=== PATIENT | female | born 1980 | race Caucasian/White ===

== ENCOUNTER 2020-11-03 14:46 | Emergency (ER) | payer MEDICARE ==
--- NOTE | 2020-11-03 15:20 | ED Physician Documentation ---
History of Present Illness - Stated complaint Stated Complaint: NECK JAW TOOTH & SINUS PX - Chief complaint Chief Complaint: Heent - Additonal information Additional information: 40-year-old female presents the emergency department for evaluation of 4 days left-sided neck pain. She is concerned that she may have an underlying ental or neck infection. She reports that in December 2019 she contracted COVID-19. 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 However her doctors have started her on methotrexate orally. This began 4 weeks ago and each week she takes an increased dose. She is scheduled to take her dose this week but her bulk tank driver requested she be seen in the emergency department for concerns of the neck pain. She denies any fevers. Does report some pain in the left upper jaw but denies chest pain or shortness of breath. Denies cough, weight loss PMH: negative SOC: no tobacco Review of Systems Constitutional: denies: Fever, Chills Eyes: reports: Reviewed and negative Ears: reports: Reviewed and negative Nose: reports: Congestion, Sinus pressure / pain Throat: reports: Dental pain / toothache, Other (left jaw pain). denies: Oral lesions / sores, Sore throat Cardiac: denies: Chest pain / pressure, Palpitations Respiratory: denies: Dyspnea, Cough GI: denies: Abdominal Pain, Abdominal Swelling, Nausea : denies: Dysuria, Frequency, Hesitancy Skin: denies: Rash, Lesions Musculoskeletal: reports: Neck pain. denies: Back pain, Extremity pain Neurologic: denies: Generalized weakness, Focal weakness, Difficulty speaking, Near syncope, Syncope, Confused, Headache, LOC PD PAST MEDICAL HISTORY - Present Medications Home Medications: Ambulatory Orders Medication Instructions Recorded Confirmed Dextroamphetamine/Amphetamine 1 tab DAILY 11/03/20 11/03/20 [Adderall 7.5 mg Tablet] Methotrexate [Methotrexate Sodium] 7 tab 11/03/20 - Allergies Allergies/Adverse Reactions: Allergies Allergy/AdvReac Type Severity Reaction Status Date / Time amoxicillin [From Augmentin] Allergy Unknown Verified 11/03/20 15:26 cephalexin [From Keflex] Allergy Unknown Verified 11/03/20 15:26 clavulanic acid Allergy Unknown Verified 11/03/20 15:26 [From Augmentin] codeine Allergy Unknown Verified 11/03/20 15:26 duloxetine Allergy Unknown Verified 02/25/21 15:26 levofloxacin [From Levaquin] Allergy Unknown Verified 11/03/20 15:26 norgestimate Allergy Unknown Verified 11/03/20 15:26 prazosin Allergy Unknown Verified 11/03/20 15:26 Sulfa (Sulfonamide Allergy Unknown Verified 11/03/20 15:26 Antibiotics) dethogestrel Allergy Unknown Uncoded 11/03/20 15:26 PD ED PE EXPANDED - General General: Alert, No acute distress, Well developed/nourished - HEENT HEENT: PERRL, EOMI, Moist mucous membranes, Pharynx normal, Dentition normal (No tenderness elicited with palpation of the upper or lower teeth. No gumline swelling, no trismus.). No: Pharyngeal erythema, Swollen tonsils, Tonsillar exudate, Dental abscess, Dry socket, Oral lesions / sores, Lip laceration - Eyes Eyes: PERRL - Neck Neck: Supple w/out meningeal sx, No tenderness. No: Adenopathy - Cardiac Cardiac: Regular Rhythm, Radial strong equal, Pedal strong equal, Cap refill < 2 sec - Respiratory Respiratory: Clear to ausultation marcella. No: Distress, Labored - Abdomen Abdomen: Normal Bowel sounds. No: Tender to palpation - Extremities Extremities: Normal. No: Deformity, Tenderness Results - Vitals Vitals: Vital Signs - 24 hr 11/03/20 11/03/20 14:52 15:21 Temperature 36.9 C 36.7 C Heart Rate 66 56 L Respiratory 18 14 Rate Blood Pressure 146/66 H 140/81 H O2 Saturation 98 100 Oxygen O2 Source Room air - EKG (time done) 1523 Rate: Rate (enter#) (54) Rhythm: NSR Palmer: Normal Intervals: Normal UT QRS: Normal Ischemia: Normal ST segments Compare to prior EKG: Old EKG unavailable Computer interpretation: Agree with computer - Labs Labs: Laboratory Tests 11/03/20 11/03/20 11/03/20 15:24 15:24 15:24 WBC 7.0 RBC 4.64 Hgb 13.4 Hct 41.8 MCV 90.1 MCH 28.9 MCHC 32.1 RDW 13.2 Plt Count 277 MPV 9.5 Neut # (Auto) 4.1 Lymph # (Auto) 2.4 [place] # (Auto) 0.4 Eos # (Auto) 0.1 Baso # (Auto) 0.0 Absolute Nucleated RBC 0.00 Nucleated RBC % 0.0 Sodium 135 Potassium 3.8 Chloride 101 Carbon Dioxide 25 Anion Gap 9.0 BUN 11 Creatinine 0.7 Estimated GFR (MDRD) 92 Glucose 89 Calcium 9.2 Total Bilirubin 0.8 AST 20 ALT 27 Alkaline Phosphatase 65 Troponin I High Sens Total Protein 7.5 Albumin 4.6 Globulin 2.9 Albumin/Globulin Ratio 1.6 Lipase 33 HCG, Quant < 0.60 11/03/20 15:24 WBC RBC Hgb Hct MCV MCH MCHC RDW Plt Count MPV Neut # (Auto) Lymph # (Auto) [place] # (Auto) Eos # (Auto) Baso # (Auto) Absolute Nucleated RBC Nucleated RBC % Sodium Potassium Chloride Carbon Dioxide Anion Gap BUN Creatinine Estimated GFR (MDRD) Glucose Calcium Total Bilirubin AST ALT Alkaline Phosphatase Troponin I High Sens < 2.3 L Total Protein Albumin Globulin Albumin/Globulin Ratio Lipase HCG, Quant - Rads (name of study) CT soft tissue neck Radiology: Final report received (No acute inflammatory findings.) PD MEDICAL DECISION MAKING - ED course Complexity details: reviewed results, re-evaluated patient, d/w patient ED course: 40-year-old female presents emergency department for evaluation of acute left neck pain. She is concerned that she may have an underlying infection as she recently started methotrexate treatment for an unclear autoimmune disorder that began after she had Covid 19 in December of last year. On clinical exam there were no adventitious fine certainly no lymphadenopathy her teeth are in good repair there was no trismus posterior oropharynx erythema. She had full range of motion of the neck. Screening labs are also unremarkable. Patient is hesitate to take her methotrexate without confirming that she did not have a deeper space neck infection therefore we did do a CT soft tissue the neck without any acute inflammatory findings specifically the teeth appear in good repair. There are no salivary gland stones. Thyroid was also unremarkable and there was no lymphadenopathy. Findings were discussed with the patient. She has had some r elief using a warm compress I recommend she continue that as well as Tylenol. Follow-up with her bulk tank driver. Departure - Departure Disposition: Home, Self Care Clinical Impression: Neck pain on left side, Nasal congestion, Autoimmune disorder Condition: Stable Record reviewed to determine appropriate education?: Yes Follow-Up: Provider,Other [Primary Care Provider] - Comments: You were seen in the emergency department today for sinus congestion and left- sided neck pain. Your screening labs are unremarkable and essentially normal. Your physical exam was also essentially normal. We did do a CT of your neck that did not show any worrisome findings. The cause of your pain is not clear though I feel very comfortable saying that this is not an infection within the neck. I think it is safe to continue taking the methotrexate. I recommend that you continue the Kathy pot for your nasal congestion. Discuss this ED visit with your primary doctor as well as your bulk tank driver. If you develop fevers, have severe facial pain, have milky drainage from your nose or facial swelling please return immediately to the emergency department.
[2020-11-03 15:28] LABS: BASOPHILS % (AUTO) 0.6 %; EOSINOPHILS # (AUTO) 0.1 10^3/uL (0.0-0.7); EOSINOPHILS % (AUTO) 0.9 %; HCT - HEMATOCRIT 41.8 % (37.0-47.0); HGB - HEMOGLOBIN 13.4 g/dL (12.0-16.0); LYMPHOCYTES # (AUTO) 2.4 10^3/uL (1.5-3.5); LYMPHOCYTES % (AUTO) 33.9 %; MEAN CORPUSCULAR HEMOGLOBIN 28.9 pg (27.0-31.0); MEAN CORPUSCULAR HGB CONC 32.1 g/dL (32.0-36.0); MEAN CORPUSCULAR VOLUME 90.1 fL (81.0-99.0); MEAN PLATELET VOLUME 9.5 fL (7.9-10.8); MONOCYTES # (AUTO) 0.4 10^3/uL (0.0-1.0); MONOCYTES % (AUTO) 5.4 %; NEUTROPHILS # (AUTO) 4.1 10^3/uL (1.5-6.6); NEUTROPHILS % (AUTO) 58.9 %; PLT - PLATELET COUNT 277 10^3/uL (130-450); RED BLOOD COUNT 4.64 10^6/uL (4.20-5.40); RED CELL DISTRIBUTION WIDTH 13.2 % (12.0-15.0)
[2020-11-03] MEDS ORDERED: IOVERSOL 320 100 ML VIAL IVP ONE ×2 (15:28→16:30)
[2020-11-03 15:45] LABS: ALBUMIN 4.6 g/dL (3.2-5.5); ALBUMIN/GLOBULIN RATIO 1.6 (1.0-2.2); BILIRUBIN,TOTAL 0.8 mg/dL (0.2-1.0); CALCIUM 9.2 mg/dL (8.5-10.3); CREATININE 0.7 mg/dL (0.4-1.0); POTASSIUM 3.8 mmol/L (3.5-5.0); TOTAL PROTEIN 7.5 g/dL (6.7-8.2)
[2020-11-03 17:26] VITALS: BP 132/85
--- NOTE | 2020-11-03 17:59 | CT Report ---
PROCEDURE: SOFT TISSUE NECK W INDICATIONS: left neck/dental pain; ? infection. on oral chemo CONTRAST: Nonionic IV TECHNIQUE: After the administration of intravenous contrast, 3.0 mm axial sections acquired from the sella to th e aortic arch. Additional oblique axial 3.0 mm sections acquired through the pharynx. 3 mm thick co rosangela reformats were generated. For radiation dose reduction, the following was used: automated exp osure control, adjustment of mA and/or kV according to patient size. COMPARISON: None. FINDINGS: Image quality: Excellent. Lymph nodes: No enlarged lymph nodes seen throughout the neck. Vessels: Visualized vasculature appears patent. Neck spaces: Scrutiny is given to the areas of clinical concern, as marked by the patient BB markers on the left. At these sites, no significant inflammatory changes or masses can be seen. The oropharynx, nasopharynx, and pharynx demonstrate no mucosal lesions. The vocal cords, false voca l cords, pyriform sinuses, epiglottis, vallecula, and tongue base all appear normal. Glands: The parotid and submandibular glands appear normal. The thyroid is normal in size. Miscellaneous: Visualized brain and orbits appear normal. Lung apices appear clear. Superficial so ft tissues appear normal. Bones: No suspicious bony lesions. Visualized sinuses and mastoids appear unremarkable. No signifi cant dental abnormality can be seen. IMPRESSION: No significant abnormalities can be seen at the areas of clinical concern. No abscess can be seen. Note: No significant discrepancy from the preliminary report. Reviewed by: Jamie Alfaro MD on 11/03/2020 4:58 PM [place] Approved by: Jamie Alfaro MD on 11/03/2020 4:58 PM [place] Station ID: [id number]
== END 2020-11-03 17:15 | disposition home or self-care (01) ==
LOC: ED 14:46
DX: M54.2 Cervicalgia (principal); D89.89 Other specified disorders involving the immune mechanism, not elsewhere classified; R09.81 Nasal congestion
CPT/HCPCS: 36415; 70491; 80053; 83690; 84484; 84702; 85025; 93005; 99284; Q9967

== ENCOUNTER 2020-11-08 10:01 | Outpatient (CLI) | payer MEDICARE ==
[2020-11-08 15:02] LABS: BASOPHILS % (AUTO) 0.4 %; EOSINOPHILS # (AUTO) 0.1 10^3/uL (0.0-0.7); EOSINOPHILS % (AUTO) 1.6 %; HCT - HEMATOCRIT 42.3 % (37.0-47.0); HGB - HEMOGLOBIN 13.2 g/dL (12.0-16.0); LYMPHOCYTES # (AUTO) 2.4 10^3/uL (1.5-3.5); MEAN CORPUSCULAR HEMOGLOBIN 28.5 pg (27.0-31.0); MEAN CORPUSCULAR HGB CONC 31.2 g/dL (32.0-36.0); MEAN CORPUSCULAR VOLUME 91.4 fL (81.0-99.0); MEAN PLATELET VOLUME 10.2 fL (7.9-10.8); MONOCYTES # (AUTO) 0.4 10^3/uL (0.0-1.0); MONOCYTES % (AUTO) 4.9 %; NEUTROPHILS # (AUTO) 4.6 10^3/uL (1.5-6.6); NEUTROPHILS % (AUTO) 60.8 %; PLT - PLATELET COUNT 278 10^3/uL (130-450); RED BLOOD COUNT 4.63 10^6/uL (4.20-5.40); RED CELL DISTRIBUTION WIDTH 13.4 % (12.0-15.0); WHITE BLOOD COUNT 7.5 x10^3/uL (4.8-10.8)
== END 2020-11-08 10:02 | disposition home or self-care (01) ==
LOC: LAB.S 10:01
PROVIDERS: ATTEND Internal Medicine
DX: Z51.81 Encounter for therapeutic drug level monitoring (principal); Z79.899 Other long term (current) drug therapy
CPT/HCPCS: 36415; 85025

== ENCOUNTER 2020-11-09 17:50 | Outpatient (CLI) | payer MEDICARE ==
[2020-11-09 20:31] LABS: BASOPHILS % (AUTO) 0.5 %; EOSINOPHILS # (AUTO) 0.1 10^3/uL (0.0-0.7); EOSINOPHILS % (AUTO) 1.1 %; HCT - HEMATOCRIT 40.6 % (37.0-47.0); LYMPHOCYTES # (AUTO) 2.2 10^3/uL (1.5-3.5); LYMPHOCYTES % (AUTO) 28.8 %; MEAN CORPUSCULAR VOLUME 90.6 fL (81.0-99.0); MEAN PLATELET VOLUME 10.3 fL (7.9-10.8); MONOCYTES # (AUTO) 0.4 10^3/uL (0.0-1.0); MONOCYTES % (AUTO) 4.6 %; NEUTROPHILS # (AUTO) 4.9 10^3/uL (1.5-6.6); NEUTROPHILS % (AUTO) 64.9 %; PLT - PLATELET COUNT 287 10^3/uL (130-450); RED BLOOD COUNT 4.48 10^6/uL (4.20-5.40); RED CELL DISTRIBUTION WIDTH 13.4 % (12.0-15.0); WHITE BLOOD COUNT 7.6 x10^3/uL (4.8-10.8)
[2020-11-09 20:48] LABS: CREATININE 0.7 mg/dL (0.4-1.0); CRP - C-REACTIVE PROTEIN 1.2 mg/dL (0-1.0)
== END 2020-11-09 17:51 | disposition home or self-care (01) ==
LOC: LAB.S 17:50
PROVIDERS: ATTEND Internal Medicine
DX: Z51.81 Encounter for therapeutic drug level monitoring (principal); Z79.899 Other long term (current) drug therapy
CPT/HCPCS: 36415; 82565; 84450; 84460; 85025; 85651; 86140

== ENCOUNTER 2020-11-15 17:26 | Outpatient (CLI) | payer MEDICARE ==
--- NOTE | 2020-11-15 18:09 | XRAY Report ---
PROCEDURE: Chest 2 View X-Ray INDICATIONS: COUGH TECHNIQUE: 2 view(s) of the chest. COMPARISON: None. FINDINGS: Surgical changes and devices: None. Lungs and pleura: No pleural effusions or pneumothorax. Lungs are clear. Mediastinum: Mediastinal contours are normal. Heart size is normal. Bones and chest wall: No suspicious bony abnormalities. Soft tissues appear unremarkable. IMPRESSION: Normal for age, source of current symptoms is not seen. Reviewed by: Tye Madrid MD on 11/15/2020 5:08 PM [facility] Approved by: Tye Madrid MD on 11/15/2020 5:08 PM [facility] Station ID: [id number]
== END 2020-11-15 17:27 | disposition home or self-care (01) ==
LOC: DI.S 17:26
PROVIDERS: ATTEND Internal Medicine
DX: R05 Cough (principal)

== ENCOUNTER 2020-12-06 09:33 | Outpatient (CLI) | payer MEDICARE | END 2020-12-06 09:34 | disposition home or self-care (01) | LOC: RT 09:33 | PROVIDERS: ATTEND Internal Medicine | DX: J45.909 Unspecified asthma, uncomplicated (principal) | CPT/HCPCS: 94060; 94729 ==

== ENCOUNTER 2021-02-01 12:50 | Outpatient (CLI) | payer MEDICARE ==
[2021-02-01 20:09] LABS: INFECTIOUS MONONUCLEOSIS NEGATIVE (Negative)
== END 2021-02-01 12:51 | disposition home or self-care (01) ==
LOC: LAB.S 12:50
PROVIDERS: ATTEND Internal Medicine
DX: Z01.84 Encounter for antibody response examination (principal); B34.9 Viral infection, unspecified
CPT/HCPCS: 36415; 86308; 86769

== ENCOUNTER 2021-08-23 16:19 | Outpatient (CLI) | payer MEDICARE | END 2021-08-23 16:20 | disposition home or self-care (01) | LOC: LAB.S 16:19 | PROVIDERS: ATTEND Internal Medicine | DX: Z01.84 Encounter for antibody response examination (principal); B97.89 Other viral agents as the cause of diseases classified elsewhere | CPT/HCPCS: 86769 ==

== ENCOUNTER 2022-01-09 08:00 | Outpatient (CLI) | payer MEDICARE ==
--- NOTE | 2022-01-09 12:14 | XRAY Report ---
PROCEDURE: Chest 2 View X-Ray INDICATIONS: PRODUCTIVE COUGH TECHNIQUE: 2 view(s) of the chest. COMPARISON: November 15, 2020 FINDINGS: SUPPORT DEVICES: None. LUNGS/PLEURA: No focal consolidation, pleural effusion or space-occupying pneumothorax. MEDIASTINUM: The cardiomediastinal silhouette is within normal limits. BONES/SOFT TISSUES: No acute abnormality. IMPRESSION: 1.No acute cardiopulmonary abnormality. Reviewed by: Lefty Merida MD on 01/09/2022 12:12 PM PDT Approved by: Lefty Merida MD on 01/09/2022 12:12 PM PDT Station ID: [id number]
== END 2022-01-09 23:59 | disposition home or self-care (01) ==
LOC: DI.S 08:00
PROVIDERS: ATTEND Physician Assistant Medical
DX: R05.8 Other specified cough (principal); R05.9 Cough, unspecified; J34.89 Other specified disorders of nose and nasal sinuses; Z20.822 Contact with and (suspected) exposure to COVID-19
CPT/HCPCS: 71046; U0004

== ENCOUNTER 2022-01-09 08:00 | Outpatient (CLI) | payer MEDICARE | END 2022-01-10 18:12 | disposition home or self-care (01) | LOC: LAB.S 08:00 | PROVIDERS: ATTEND Physician Assistant Medical | DX: J34.89 Other specified disorders of nose and nasal sinuses (principal); Z20.822 Contact with and (suspected) exposure to COVID-19 ==

== ENCOUNTER 2022-02-28 12:32 | Outpatient (CLI) | payer MEDICARE ==
[2022-02-28 23:22] LABS: CHLAMYDIA TRACHOMATIS DNA NEGATIVE (NEGATIVE); NEISSERIA GONORRHOEAE DNA NEGATIVE (NEGATIVE); TRICHOMONAS VAGINALIS DNA NEGATIVE (NEGATIVE)
[2022-03-01 06:10] LABS: RPR Non Reactive (Non Reactive)
[2022-03-01 07:10] LABS: HBsAG SCREEN Negative (Negative); HCV AB <0.1 s/co ratio (0.0-0.9); HEPATITIS B CORE IGM AB Negative (Negative); HIV SCREEN 4TH GENERATION Non Reactive (Non Reactive)
[2022-03-01 08:10] LABS: HSV 1 IGG TYPE SPEC <0.91 index (0.00-0.90); HSV 2 IGG TYPE SPEC <0.91 index (0.00-0.90)
[2022-03-01 15:08] LABS: TREPONEMA PALLIDUM ANTIBODIES Non Reactive (Non Reactive)
== END 2022-02-28 12:33 | disposition home or self-care (01) ==
LOC: LAB.S 12:32
PROVIDERS: ATTEND Internal Medicine
DX: Z11.3 Encounter for screening for infections with a predominantly sexual mode of transmission (principal)
CPT/HCPCS: 36415; 86592; 86695; 86696; 86705; 86709; 86780; 86803; 87340; 87491; 87591; 87661; G0475; 87389; 87529

== ENCOUNTER 2023-01-06 10:03 | Emergency (ER) | payer MEDICARE ==
[2023-01-06] MEDS ORDERED: predniSONE 20 MG TABLET PO STA (10:28)
--- NOTE | 2023-01-06 10:35 | ED Physician Documentation ---
PD HPI SKIN - Stated complaint Stated Complaint: RASH ON FACE - Chief complaint Chief Complaint: Wound - History obtained from History obtained from: Patient - Additional information Additional information: Patient is a 42-year-old female presenting for evaluation of a rash that developed on her face yesterday and has spread to her chest and back. She describes the rash as feeling itchy. There are pustules to the forehead region.She tried Benadryl and triamcinolone Yesterday. She says that the swelling she was experiencing yesterday to her face does seem better. She denies any new known exposures.She does report having newly developed allergies to various foods since having COVID last year. She has had outbreaks of various rashes and has seen a policy adviser at the [facility]. She did send a message through the portal system today but did not receive an answer back.She denies any new known foods, detergents, face lotions or soaps.She denies any chest pain or shortness of breath. She denies any fevers. 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: Ovarian cysts : Other Musculoskeletal: Osteoarthritis, Fibromyalgia, Other - Past Surgical History Past Surgical History: Yes General: Appendectomy, Colonoscopy, EGD - Present Medications Home Medications: Ambulatory Orders Medication Instructions Recorded Confirmed Dextroamphetamine/Amphetamine 1 tab DAILY 11/03/20 11/03/20 [Adderall 7.5 mg Tablet] Methotrexate [Methotrexate Sodium] 7 tab 11/03/20 Mupirocin 1 applic TP TID 7 Days #22 gm 01/06/23 predniSONE [Deltasone] 60 mg PO DAILY 4 Days #12 tablet 01/06/23 - Allergies Allergies/Adverse Reactions: Allergies Allergy/AdvReac Type Severity Reaction Status Date / Time amoxicillin [From Augmentin] Allergy Unknown Verified 01/06/23 10:14 cephalexin [From Keflex] Allergy Unknown Verified 01/06/23 10:14 clavulanic acid Allergy Unknown Verified 01/06/23 10:14 [From Augmentin] codeine Allergy Unknown Verified 01/06/23 10:14 duloxetine Allergy Unknown Verified 01/06/23 10:14 levofloxacin [From Levaquin] Allergy Unknown Verified 01/06/23 10:14 norgestimate Allergy Unknown Verified 01/06/23 10:14 prazosin Allergy Unknown Verified 01/06/23 10:14 Sulfa (Sulfonamide Allergy Unknown Verified 01/06/23 10:14 Antibiotics) dethogestrel Allergy Unknown Uncoded 01/06/23 10:14 - Social History Does the pt smoke?: No Smoking Status: Never smoker PD ED PE NORMAL - General General: Alert and oriented X 3, No acute distress, Well developed/nourished - HEENT HEENT: Atraumatic, Moist mucous membranes, Pharynx benign - Neck Neck: Supple, no meningeal sign - Cardiac Cardiac: RRR, No murmur - Respiratory Respiratory: No respiratory distress, Clear bilaterally - Abdomen Abdomen: Soft, Non tender - Derm Derm: Other (Pustular rash to forehead, Papular erythema to lower face, no oral involvement; blanching erythema to chest and back) - Neuro Neuro: Normal speech Results - Vitals Vitals: Vital Signs - 24 hr 01/06/23 01/06/23 10:08 10:40 Temperature 36.9 C Heart Rate 71 65 Respiratory 17 18 Rate Blood Pressure 135/91 H 131/75 H O2 Saturation 97 100 Oxygen O2 Source Room air PD Medical Decision Making - ED course ED course: Patient presenting for evaluation of rash to her face and upper torso. Her vital signs are stable. She has no involvement of mucosal membranes. She is otherwise well-appearing. She has had prior rashes with unclear etiologies and does report having a developed allergies since having COVID last year. Due to widespread involvement I believe oral steroids would be indicated as it is itchy and appears to be somewhat allergic in nature.There is a pustular rash to the forehead. Discussed treatment with antibiotic ointment which she is agreeable to. Does not want oral antibiotics at this time. Does not appear to be cellulitis. She has a policy adviser through the [facility]. She has already reached out to them through their patient messaging system and was advised to have close follow-up. She is comfortable with our treatment plan is advised on concerning symptoms to return for. Departure - Departure Disposition: 01 Home, Self Care Clinical Impression: Rash and nonspecific skin eruption Condition: Stable Instructions: ED Dermatitis Non Specific Rash Prescriptions: predniSONE [Deltasone] 60 mg PO DAILY 4 Days #12 tablet Mupirocin 1 applic TP TID 7 Days #22 gm Comments: The exact etiology of your rash is unclear. There might be 2 processes going on. I am starting you on an oral steroid called prednisone for the next 5 days given the spread of the rash. I am also prescribing a topical antibiotic ointment for use over the pustular area on your forehead. I would recommend close follow-up with your policy adviser tomorrow for further evaluation and recommendations. If you develop any new or worsening symptoms you can always return to the emergency department. I would continue with Benadryl to help prevent itching of any irritated areas. I have sent your prescriptions to [facility] in [place]. Discharge Date/Time: 01/06/23 10:40
[2023-01-06 10:42] VITALS: BP 131/75
== END 2023-01-06 10:40 | disposition home or self-care (01) ==
LOC: ED 10:03
DX: R21 Rash and other nonspecific skin eruption (principal)
CPT/HCPCS: 99282; 99283; J7512

== ENCOUNTER 2023-01-07 14:27 | Emergency (ER) | payer MEDICARE ==
[2023-01-07 15:11] VITALS: BP 149/104
--- NOTE | 2023-01-07 15:29 | ED Physician Documentation ---
PD HPI SKIN - Stated complaint Stated Complaint: SENT BY PCP - Chief complaint Chief Complaint: Wound - History obtained from History obtained from: Patient - History of Present Illness Pain level max: 0 Pain level now: 0 - Additional information Additional information: 42-year-old female states that she has had a rash to the forehead, chest, back, buttocks ongoing for the past several months. She states it did improve temporarily with doxycycline. She states that she saw a owner oral surgeon at the [facility] who wanted her to have a herpes swab and varicella titers. He told her that next time she has an outbreak to come and be evaluated. She attempted to get the order done at the lab but the order was not signed, therefore she has checked into the emergency department. 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: Ovarian cysts : Other Musculoskeletal: Osteoarthritis, Fibromyalgia, Other - Past Surgical History Past Surgical History: Yes General: Appendectomy, Colonoscopy, EGD - Present Medications Home Medications: Ambulatory Orders Medication Instructions Recorded Confirmed Dextroamphetamine/Amphetamine 1 tab DAILY 11/03/20 11/03/20 [Adderall 7.5 mg Tablet] Methotrexate [Methotrexate Sodium] 7 tab 11/03/20 Mupirocin 1 applic TP TID 7 Days #22 gm 01/06/23 predniSONE [Deltasone] 60 mg PO DAILY 4 Days #12 tablet 01/06/23 Doxycycline Monohydrate 100 mg PO BID #42 cap 01/07/23 Valacyclovir HCl [Valtrex] 1,000 mg PO TID #21 tablet 01/07/23 - Allergies Allergies/Adverse Reactions: Allergies Allergy/AdvReac Type Severity Reaction Status Date / Time amoxicillin [From Augmentin] Allergy Unknown Verified 01/07/23 15:15 cephalexin [From Keflex] Allergy Unknown Verified 01/07/23 15:15 clavulanic acid Allergy Unknown Verified 01/07/23 15:15 [From Augmentin] codeine Allergy Unknown Verified 01/07/23 15:15 duloxetine Allergy Unknown Verified 01/06/23 10:14 levofloxacin [From Levaquin] Allergy Unknown Verified 01/07/23 15:15 norgestimate Allergy Unknown Verified 01/07/23 15:15 prazosin Allergy Unknown Verified 01/07/23 15:15 Sulfa (Sulfonamide Allergy Unknown Verified 01/07/23 15:15 Antibiotics) dethogestrel Allergy Unknown Uncoded 01/07/23 15:15 - Social History Does the pt smoke?: No Smoking Status: Never smoker - POLST Patient has POLST: No PD ED PE NORMAL - Vitals Vital signs reviewed: Yes - General General: Alert and oriented X 3, No acute distress - HEENT HEENT: Moist mucous membranes - Neck Neck: Supple, no meningeal sign - Cardiac Cardiac: RRR - Respiratory Respiratory: No respiratory distress, Clear bilaterally - Derm Derm: Warm and dry - Neuro Neuro: Alert and oriented X 3 - Free text exam Free text exam: Patient has a pustular rash on the forehead, also on the neck. Results - Vitals Vitals: Vital Signs - 24 hr 01/07/23 15:07 Temperature 36.6 C Heart Rate 76 Respiratory 16 Rate Blood Pressure 149/104 H O2 Saturation 98 Oxygen O2 Source Room air - Labs Labs: Microbiology 01/07/23 15:31 Wound Culture - Preliminary Face - Forehead PD Medical Decision Making - ED course Complexity details: re-evaluated patient, considered differential, d/w patient ED course: Patient has had recurrent pustular rash. Reports occasionally possibly vesicular. The test that her owner oral surgeon requested were ordered. She states that it did improve once with doxycycline, but she was only on this for a week. Possible folliculitis versus pustular acne versus hormonal rash. We will place on doxycycline for home. Her owner oral surgeon also requests valacyclovir. We will place her on this as well. Patient is well-appearing, nontoxic. Afebrile. Patient counseled regarding signs and symptoms for which I believe and urgent re-evaluation would be necessary. Patient with good understanding of and agreement to plan and is comfortable going home at this time This document was made in part using voice recognition software. While efforts are made to proofread this document, sound alike and grammatical errors may occur. Patient could also try hypochlorus acid. Departure - Departure Disposition: Home, Self Care Clinical Impression: Rash and nonspecific skin eruption Condition: Good Instructions: ED Folliculitis Follow-Up: your,doctor in 1week [Other] Prescriptions: Doxycycline Monohydrate 100 mg PO BID #42 cap Valacyclovir HCl [Valtrex] 1,000 mg PO TID #21 tablet Comments: Your prescription was sent to [facility] in [place]. Please follow-up with your owner oral surgeon for further care. A culture swab was sent in addition to the test ordered by your owner oral surgeon. You can also look for hypochlorous acid to apply to your skin and see if this helps as well. This is usually in a lotion based format or facial spray Discharge Date/Time: 01/07/23 16:03
[2023-01-08 08:10] LABS: VARICELLA-ZOSTER AB IGG 1713 index (Immune >165)
[2023-01-08 15:09] LABS: VARICELLA-ZOSTER AB IGM <0.91 index (0.00-0.90)
[2023-01-09 23:08] LABS: HSV-1 DNA Negative (Negative); HSV-2 DNA Negative (Negative)
== END 2023-01-07 16:03 | disposition home or self-care (01) ==
LOC: ED 14:27
DX: R21 Rash and other nonspecific skin eruption (principal)
CPT/HCPCS: 86787; 87070; 87205; 87529; 99283

== ENCOUNTER 2023-06-06 08:00 | Outpatient (CLI) | payer MEDICARE ==
--- NOTE | 2023-06-07 11:37 | XRAY Report ---
PROCEDURE: Knee 4 View LT INDICATIONS: KNEE PAIN TECHNIQUE: 3 views of the knee was obtained. COMPARISON: None FINDINGS: Bones: No fractures or dislocations. No suspicious bony lesions. Mild medial compartment joint spac e narrowing Soft tissues: No knee joint effusion. No suspicious soft tissue calcifications or masses. IMPRESSION: Mild joint space narrowing. No fracture or joint effusion Reviewed by: Hans Grace MD on 06/07/2023 10:36 AM [facility] Approved by: Hans Grace MD on 06/07/2023 10:36 AM [facility] Station ID: [id number]
== END 2023-06-06 23:59 | disposition home or self-care (01) ==
LOC: DI.S 08:00
PROVIDERS: ATTEND Internal Medicine
DX: M17.12 Unilateral primary osteoarthritis, left knee (principal)

== ENCOUNTER 2023-06-06 18:29 | Outpatient (CLI) | payer MEDICARE ==
--- NOTE | 2023-06-07 11:37 | XRAY Report ---
PROCEDURE: Elbow 3 View RT INDICATIONS: PAIN IN RIGHT ELBOW TECHNIQUE: 3 views of the elbow were acquired. COMPARISON: None FINDINGS: Bones: No fractures or dislocations. No suspicious bony lesions. Soft tissues: No elbow joint effusion. No suspicious soft tissue calcifications. IMPRESSION: Unremarkable elbow radiographs Reviewed by: Hans Grace MD on 06/07/2023 10:35 AM [facility] Approved by: Hans Grace MD on 06/07/2023 10:35 AM [facility] Station ID: [id number]
== END 2023-06-06 18:30 | disposition home or self-care (01) ==
LOC: DI.S 18:29
PROVIDERS: ATTEND Internal Medicine
DX: M25.521 Pain in right elbow (principal); R20.0 Anesthesia of skin; R20.2 Paresthesia of skin

== ENCOUNTER 2024-04-30 09:58 | Emergency (ER) | payer MEDICARE ==
--- NOTE | 2024-04-30 10:13 | ED Physician Documentation ---
History of Present Illness - Stated complaint Stated Complaint: SORE THROAT,COUGH,CONGESTION - History obtained from History obtained from: Patient - Additonal information Additional information: 44-year-old woman with history of ankylosing spondylitis presents with a little over weeks illness starting with a sore throat and then it moved down into her chest with a nonproductive cough. No fevers. She does have laryngitis as well. 2 home COVID tests were negative. 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: Ovarian cysts : Other Musculoskeletal: Osteoarthritis, Fibromyalgia, Other - Past Surgical History Past Surgical History: Yes General: Appendectomy, Colonoscopy, EGD - Present Medications Home Medications: Ambulatory Orders Medication Instructions Recorded Confirmed Dextroamphetamine/Amphetamine 1 tab DAILY 11/03/20 11/03/20 [Adderall 7.5 mg Tablet] Methotrexate [Methotrexate Sodium] 7 tab 11/03/20 Mupirocin 1 applic TP TID 7 Days #22 gm 01/06/23 predniSONE [Deltasone] 60 mg PO DAILY 4 Days #12 tablet 01/06/23 Doxycycline Monohydrate 100 mg PO BID #42 cap 01/07/23 Valacyclovir HCl [Valtrex] 1,000 mg PO TID #21 tablet 01/07/23 Albuterol Sulf [Ventolin Hfa 1 - 2 puffs INH Q4HR PRN #1 each 04/30/24 Inhaler] guaiFENesin/CODEINE [Robitussin AC] 5 - 10 ml PO Q6H PRN #120 ml 04/30/24 predniSONE [Deltasone] 20 mg PO [id number] #21 tab 04/30/24 - Allergies Allergies/Adverse Reactions: Allergies Allergy/AdvReac Type Severity Reaction Status Date / Time amoxicillin [From Augmentin] Allergy Unknown Verified 01/07/23 15:15 cephalexin [From Keflex] Allergy Unknown Verified 01/07/23 15:15 clavulanic acid Allergy Unknown Verified 01/07/23 15:15 [From Augmentin] codeine Allergy Unknown Verified 01/07/23 15:15 duloxetine Allergy Unknown Verified 01/06/23 10:14 levofloxacin [From Levaquin] Allergy Unknown Verified 01/07/23 15:15 norgestimate Allergy Unknown Verified 01/07/23 15:15 prazosin Allergy Unknown Verified 01/07/23 15:15 Sulfa (Sulfonamide Allergy Unknown Verified 01/07/23 15:15 Antibiotics) dethogestrel Allergy Unknown Uncoded 01/07/23 15:15 - Social History Does the pt smoke?: No Smoking Status: Never smoker Does the pt drink ETOH?: Yes Does the pt have substance abuse?: No - Immunizations Immunizations are current?: Yes - POLST Patient has POLST: No PD ED PE NORMAL - Vitals Vital signs reviewed: Yes - General General: Alert and oriented X 3, No acute distress - HEENT HEENT: Pharynx benign - Neck Neck: Supple, no meningeal sign - Cardiac Cardiac: RRR, No murmur - Respiratory Respiratory: No respiratory distress, Other (Mild expiratory wheezing without focal findings) - Derm Derm: Normal color, Warm and dry - Neuro Neuro: Alert and oriented X 3 Results - Vitals Vitals: Oxygen O2 Source Room air PD Medical Decision Making - ED course ED course: Seeming like a viral respiratory process. I do not think specific diagnostic testing is necessary. She is treated symptomatically. Departure - Departure Disposition: Home, Self Care Clinical Impression: Viral bronchitis Condition: Good Record reviewed to determine appropriate education?: Yes Instructions: ED Upper Resp Infec No Abx Tx Prescriptions: Albuterol Sulf [Ventolin Hfa Inhaler] 1 - 2 puffs INH Q4HR PRN #1 each PRN Reason: Shortness Of Air/Wheezing predniSONE [Deltasone] 20 mg PO [id number] #21 tab guaiFENesin/CODEINE [Robitussin AC] 5 - 10 ml PO Q6H PRN #120 ml PRN Reason: Cough Comments: I sent your prescriptions electronically to the [facility] pharmacy at the corner of [address] [address] and [facility] in [place]. Do not drink or drive while taking codeine containing cough syrup. Return for new or worsening symptoms. Follow-up with your primary care physician in about a week if not better.
[2024-04-30 10:23] VITALS: BP 148/98; O2SAT 98
== END 2024-04-30 10:23 | disposition home or self-care (01) ==
LOC: ED 09:58
DX: J20.8 Acute bronchitis due to other specified organisms (principal); M45.9 Ankylosing spondylitis of unspecified sites in spine; M79.7 Fibromyalgia
CPT/HCPCS: 99283

== ENCOUNTER 2024-05-04 21:15 | Emergency (ER) | payer MEDICARE, MEDICAID ==
--- NOTE | 2024-05-04 21:40 | ED Physician Documentation ---
PD HPI DYSPNEA - Stated complaint Stated Complaint: SOA/COUGH - Chief complaint Chief Complaint: Resp - History obtained from History obtained from: Patient - Additional information Additional information: Patient complains of 1 to 2 weeks of cough, shortness of breath, wheezing. She was treated released from this emergency department 4 days ago for the symptoms, prescribed a 10-day tapering course of prednisone, Robitussin AC, and albuterol MDI. Patient says the symptoms have worsened with increasing cough and shortness of breath. She says the cough is causing "my ribs to dislocate" (per patient). She says her ribs dislocate due to the coughing with underlying Norman-Danlos syndrome. She says she stopped taking the Robitussin AC because she is also taking Mucinex with Tylenol, and did not want to take too much Tylenol. She also says "my kidneys hurt" and she stopped taking the Robitussin AC because of bilateral back pain as well. Patient says she contacted her primary care provider today (who practices in [place]) and was told to come to the emergency department for chest x-ray, respiratory PCR panel, and nebulizer treatment. 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 Review of Systems Constitutional: reports: Myalgias. denies: Fever Cardiac: denies: Chest pain / pressure, Pedal edema Respiratory: reports: Dyspnea, Cough, Wheezing. 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 : Other Musculoskeletal: Osteoarthritis, Fibromyalgia, Other - Past Surgical History Past Surgical History: Yes General: Appendectomy, Colonoscopy, EGD - Present Medications Home Medications: Ambulatory Orders Medication Instructions Recorded Confirmed Dextroamphetamine/Amphetamine 1 tab DAILY 11/03/20 11/03/20 [Adderall 7.5 mg Tablet] Methotrexate [Methotrexate Sodium] 7 tab 11/03/20 Mupirocin 1 applic TP TID 7 Days #22 gm 01/06/23 predniSONE [Deltasone] 60 mg PO DAILY 4 Days #12 tablet 01/06/23 Doxycycline Monohydrate 100 mg PO BID #42 cap 01/07/23 Valacyclovir HCl [Valtrex] 1,000 mg PO TID #21 tablet 01/07/23 Albuterol Sulf [Ventolin Hfa 1 - 2 puffs INH Q4HR PRN #1 each 04/30/24 Inhaler] guaiFENesin/CODEINE [Robitussin AC] 5 - 10 ml PO Q6H PRN #120 ml 04/30/24 predniSONE [Deltasone] 20 mg PO [id number] #21 tab 04/30/24 Benzonatate [Tessalon] 100 mg PO TID PRN #30 cap 05/04/24 Ipratropium/Albuterol [Duoneb] 3 ml INH Q6H PRN #20 ml 05/04/24 Nebulizer 1 each MC Q6HR #1 ea 05/04/24 - Allergies Allergies/Adverse Reactions: Allergies Allergy/AdvReac Type Severity Reaction Status Date / Time amoxicillin [From Augmentin] Allergy Hives Verified 05/04/24 21:21 cephalexin [From Keflex] Allergy Hives Verified 05/04/24 21:21 clavulanic acid Allergy Hives Verified 05/04/24 21:21 [From Augmentin] codeine Allergy Itching Verified 05/04/24 21:21 duloxetine Allergy Itching Verified 05/04/24 21:21 levofloxacin [From Levaquin] Allergy Hives Verified 05/04/24 21:21 norgestimate Allergy Itching Verified 05/04/24 21:21 prazosin Allergy Itching Verified 05/04/24 21:21 Sulfa (Sulfonamide Allergy Hives Verified 05/04/24 21:21 Antibiotics) dethogestrel Allergy Itching Uncoded 05/04/24 21:21 - Social History Does the pt smoke?: No Smoking Status: Never smoker Does the pt drink ETOH?: Yes Does the pt have substance abuse?: No - Immunizations Immunizations are current?: Yes - POLST Patient has POLST: No PD ED PE NORMAL - Vitals Vital signs reviewed: Yes - General General: Alert and oriented X 3, Other (lying face-down) - HEENT HEENT: Moist mucous membranes, Pharynx benign - Neck Neck: Supple, no meningeal sign - Cardiac Cardiac: RRR, No murmur - Respiratory Respiratory: No respiratory distress - Extremities Extremities: No edema PD ED PE EXPANDED - Respiratory Respiratory: Wheezing (bilateral end-expiratory wheezing, no rhonchi) Results - Vitals Vitals: Oxygen O2 Source Room air - Labs Labs: Laboratory Tests 05/04/24 21:28 Nasal Adenovirus (PCR) NOT DETECTED Nasal B. parapertussis DNA (PCR) NOT DETECTED Nasal Coronavir 229E PCR NOT DETECTED Nasal Coronavir HKU1 PCR NOT DETECTED Nasal Coronavir NL63 PCR NOT DETECTED Nasal Coronavir OC43 PCR NOT DETECTED Nasal Enterovir/Rhinovir PCR DETECTED A Nasal Influenza B PCR NOT DETECTED Nasal Influenza A PCR NOT DETECTED Nasal Parainfluen 1 PCR NOT DETECTED Nasal Parainfluen 2 PCR NOT DETECTED Nasal Parainfluen 3 PCR NOT DETECTED Nasal Parainfluen 4 PCR NOT DETECTED Nasal RSV (PCR) NOT DETECTED Nasal B.pertussis DNA PCR NOT DETECTED Nasal C.pneumoniae (PCR) NOT DETECTED Eyad Human Metapneumo PCR NOT DETECTED Nasal M.pneumoniae (PCR) NOT DETECTED Nasal SARS-CoV-2 (PCR) NOT DETECTED - Rads (name of study) chest xray Relevant Findings:: Prelim report reviewed, See rad report PD Medical Decision Making - ED course Complexity details: reviewed old records, reviewed results, re-evaluated patient, considered differential, d/w patient ED course: Normal CXR. Respiratory PCR panel is positive for entero/rhinovirus. After duoneb she is sitting up, in NAD, and reports feeling much improved. Results d/w patient. She is given rx for duoneb solution for nebulizer. She initially tells me she has two nebulizers at home but asks to be prescribed one just as she was being discharged and thus I also sent rx for nebulizer to her pharmacy of choice. Departure - Departure Disposition: 01 Home, Self Care Clinical Impression: Viral bronchitis Condition: Good Instructions: ED Upper Resp Infec No Abx Tx Prescriptions: Nebulizer 1 each MC Q6HR #1 ea Ipratropium/Albuterol [Duoneb] 3 ml INH Q6H PRN #20 ml PRN Reason: Dyspnea Benzonatate [Tessalon] 100 mg PO TID PRN #30 cap PRN Reason: Cough Comments: The chest x-ray was normal; no evidence of pneumonia. Realize that bronchitis ("chest cold") does not show up on chest x-ray, and thus this is the suspected diagnosis at this point. Your nasal swab tested positive for enterovirus/rhinovirus; these viruses cause upper respiratory infection symptoms but rarely cause any serious medical problems. There is no specific treatment; the symptoms typically resolve within a few days, but sometimes linger for one or more weeks. I have electronically submitted prescriptions for Tessalon Perles (cough medication) and DuoNebs ("breathing treatment" medication) to the [facility] in [place]. Forms: PCP List Discharge Date/Time: 05/04/24 23:55
[2024-05-04] MEDS: IPRATROPIUM/ALBUTEROL 3 ML NEB INH STA ×2 (22:21→23:49)
[2024-05-04 22:23] LABS: CORONAVIRUS 229E-RESP PCR NOT DETECTED; CORONAVIRUS HKU1-RESP PCR NOT DETECTED; CORONAVIRUS NL63-RESP PCR NOT DETECTED; CORONAVIRUS OC43-RESP PCR NOT DETECTED; HUMAN METAPNEUMOVIRUS NOT DETECTED; INFLUENZA A- RESP PCR PANEL NOT DETECTED; INFLUENZA B - RESP PCR PANEL NOT DETECTED; PARAINFLUENZA VIRUS 1 NOT DETECTED; PARAINFLUENZA VIRUS 2 NOT DETECTED; PARAINFLUENZA VIRUS 3 NOT DETECTED; PARAINFLUENZA VIRUS 4 NOT DETECTED; RHINOVIRUS/ENTEROVIRUS DETECTED; RSV- RESP PCR PANEL NOT DETECTED; SARS-CoV-2 -RESP PCR PANEL NOT DETECTED
[2024-05-04 22:24] LABS: B. PARAPERTUSSIS- RESP PCR PAN NOT DETECTED; B. PERTUSSIS- RESP PCR PANEL NOT DETECTED; C. PNEUMONIAE- RESP PCR PANEL NOT DETECTED; M. PNEUMONIAE- RESP PCR PANEL NOT DETECTED
--- NOTE | 2024-05-04 22:48 | XRAY Report ---
PROCEDURE: Chest 2V INDICATIONS: dyspnea, cough TECHNIQUE: 2 views of the chest were acquired. COMPARISON: 01/09/2022 FINDINGS: Surgical changes and devices: None. Lungs and pleura: No pleural effusions or pneumothorax. Lungs are clear. Mediastinum: Mediastinal contours appear normal. Heart size is normal. Bones and chest wall: No suspicious bony lesions. Overlying soft tissues appear unremarkable. IMPRESSION: No acute cardiopulmonary process. No focal consolidation. Reviewed by: Evans Miner MD on 05/04/2024 10:47 PM PDT Approved by: Evans Miner MD on 05/04/2024 10:47 PM PDT Station ID: [id number]
[2024-05-04] MEDS: BENZONATATE 100 MG CAPSULE PO STA (23:48)
[2024-05-04 23:59] VITALS: BP 146/81; O2SAT 99
== END 2024-05-04 23:55 | disposition home or self-care (01) ==
LOC: ED 21:15
DX: J20.8 Acute bronchitis due to other specified organisms (principal); M79.7 Fibromyalgia
CPT/HCPCS: 71046; 87633; 94640; 99283; 99284; A9270